=== PATIENT | male | born 1945 | race Caucasian/White ===

== ENCOUNTER 2016-09-20 21:05 | Emergency (ER) | payer OTHER ==
[~2016-09-20] VITALS: Ht 167.6 cm; Wt 77.2 kg
[~2016-09-20 21:05] MED LIST: ALPRAZOLAM0.25 M2 PO; ALPRAZOLAM1 MG PO; ASPIRIN325 MG PO; ASPIRIN81 M1 PO; ASPIRIN81 M2 PO; Betapace,Sorine PO; CRESTOR40 MG PO; Ecotrin PO; FLEXERIL10 MG PO; LOPRESSOR100 M1 PO; LOPRESSOR50 MG PO; Lopressor PO; MAG-OXIDE400 MG PO; MAGOX400 MG PO; METOPROLOL TART50 MG PO; MOTRIN800 MG PO; Mag-Ox PO; SOTALOL80 MG PO; TOPROL XL50 MG PO
[2016-09-20 21:32] LABS: HEMATOCRIT 47.4 % (38.0-50.0); MCH 31.3 PG (29.0-34.0); MCHC 33.8 G/DL (30.0-36.0); MCV 92.8 FL (86-99); MEAN PLAT.VOLUME 10.9 uM^3 (9.0-12.4); PLATELET COUNT 213 K/uL (156-360); RBC DIS.WIDTH-CV 12.6 % (11.8-14.6); RBC DIS.WIDTH-SD 41.7 % (39-53); RED BLOOD COUNT 5.11 M/uL (4.00-5.50); WHITE BLOOD COUNT 6.4 K/uL (4.1-10.2)
[2016-09-20 21:41] LABS: CHLORIDE 104 mEq/L (99-109); POTASSIUM 4.8 mEq/L (3.7-5.4); SODIUM 141 mEq/L (136-147)
[2016-09-20 21:43] LABS: GLUCOSE 119 mg/dL (70-99)
[2016-09-20 21:44] LABS: ANION GAP 7 MEQ/L (2-14)
[2016-09-20 21:47] LABS: GFR ESTIMATE (CALCULATED) > 59 mL/min/
[2016-09-20 21:48] LABS: UREA NITROGEN (BUN) 14 mg/dL (9-23)
[2016-09-20 21:52] LABS: TROP-I INTERPRETATION NEGATIVE; TROPONIN-I 0.05 ng/mL (0.0-0.30)
[2016-09-20] MEDS ORDERED: FLONASE16 G1 BOTH NARES (23:02)
[2016-09-20] MEDS ORDERED: MAGNESIUM250 MG PO (23:04)
[2016-09-21 02:24] VITALS: BP 146/90
== END 2016-09-21 02:25 | disposition left against medical advice (07) ==
LOC: EME 21:05
DX: R07.9 Chest pain, unspecified (principal); R00.2 Palpitations; I10 Essential (primary) hypertension; I25.10 Atherosclerotic heart disease of native coronary artery without angina pectoris; Z95.810 Presence of automatic (implantable) cardiac defibrillator; I25.2 Old myocardial infarction; K21.9 Gastro-esophageal reflux disease without esophagitis; Z87.442 Personal history of urinary calculi; Z87.891 Personal history of nicotine dependence
CPT/HCPCS: 71020; 80048; 84484; 85027; 93005; 99281; 99284

== ENCOUNTER 2017-03-17 12:15 | Day surgery (SDC) | payer OTHER ==
[~2017-03-17] VITALS: Ht 167.6 cm; Wt 72.6 kg
[~2017-03-17 12:15] MED LIST changes: +ALL DAY ALLERGY10 MG PO; +ASPIR-LOW81 MG PO; -ASPIRIN81 M2 PO; +FLONASE16 G1 BOTH NARES; +MAGNESIUM250 MG PO
== END 2017-03-17 15:20 | disposition home or self-care (01) ==
LOC: CATH 12:15
PROC: 0JPT3PZ Removal of Cardiac Rhythm Related Device from Trunk Subcutaneous Tissue and Fascia, Percutaneous Approach (ICD-10-PCS; principal; 2017-03-17)
PROC: 0JH638Z Insertion of Defibrillator Generator into Chest Subcutaneous Tissue and Fascia, Percutaneous Approach (ICD-10-PCS; principal; 2017-03-17)
DX: Z45.02 Encounter for adjustment and management of automatic implantable cardiac defibrillator (principal); I47.2 Ventricular tachycardia; I25.2 Old myocardial infarction; I25.10 Atherosclerotic heart disease of native coronary artery without angina pectoris; I10 Essential (primary) hypertension; I42.0 Dilated cardiomyopathy; I25.5 Ischemic cardiomyopathy; Z87.891 Personal history of nicotine dependence; E78.2 Mixed hyperlipidemia; Z79.82 Long term (current) use of aspirin; I65.29 Occlusion and stenosis of unspecified carotid artery
CPT/HCPCS: C1721; J0690; J1200; J2250; J3010; S0020